=== PATIENT | male | born 1970 | race African-American/Black ===

== ENCOUNTER 2022-05-04 08:31 | Emergency (ER) | payer MEDICAID ==
[~2022-05-04] VITALS: Ht 170.2 cm; Wt 73.0 kg
[2022-05-04] MEDS ORDERED: ACETAMINOPHEN 325MG TABLET PO ONE (09:15)
[2022-05-04] MEDS ORDERED: LORAZEPAM 1MG TABLET PO ONE (09:15)
[2022-05-04] MEDS ORDERED: ONDANSETRON 4MG ODT PO ONE (09:15)
[2022-05-04] MEDS ORDERED: ONDA4TAB11 PO (10:17)
[2022-05-04 11:18] VITALS: BP 131/65
== END 2022-05-04 11:26 | disposition home or self-care (01) ==
LOC: ER 08:31
DX: R11.0 Nausea (principal); F11.10 Opioid abuse, uncomplicated
CPT/HCPCS: 99284; Q0162